=== PATIENT | male | born 1970 | race Hispanic/Latino ===

== ENCOUNTER 2017-05-16 20:35 | Emergency (ER) | payer BC ==
[2017-05-16 21:07] LABS: APPEARANCE,URINE Clear (CLEAR); BILIRUBIN,URINE Negative (NEGATIVE); COLOR,URINE Yellow (YELLOW); GLUCOSE, URINE (UA) TRACE mg/dL (NEGATIVE); KETONES,URINE Trace mg/dL (NEGATIVE); LEUKOCYTE ESTERASE ,URINE Negative (NEGATIVE); NITRATE,URINE Negative (NEGATIVE); OCCULT BLOOD,URINE Negative (NEGATIVE); PH,URINE 5.5 (5.0-8.0); PROTEIN,URINE Negative (NEGATIVE)
[2017-05-16 21:08] LABS: BASOPHILS % (AUTO) 0.6 % (0.0-5.0); EOSINOPHILS % (AUTO) 2.2 % (0.0-8.0); HEMATOCRIT 41.8 % (42-54); LYMPHOCYTES % (AUTO) 31.4 % (21.0-51.0); MEAN CORPUSCULAR HEMOGLOBIN 28.8 pg (27.0-33.0); MEAN CORPUSCULAR HGB CONC 34.6 g/dL (32.0-36.0); MEAN CORPUSCULAR VOLUME 83.4 fL (79-99); NEUTROPHILS % (AUTO) 54.8 % (40.0-77.0); PLATELET COUNT (AUTO) 220 K/uL (130-400); RED BLOOD CELL COUNT(AUTO) 5.01 MIL/uL (4.50-6.20); RED CELL DISTRIBUTION WIDTH 12.9 % (11.0-15.5); WHITE BLOOD COUNT (AUTO) 9.2 K/uL (4.8-10.8)
[2017-05-16 21:13] LABS: BACTERIA,URINE None Seen /HPF (None Seen); RBC,URINE None Seen /HPF (0-1); SQUAMOUS EPITHELIAL CELL,UR 0-2 /LPF (0-2); WBC,URINE None Seen /HPF (0-1)
[2017-05-16 21:38] LABS: CREATININE 0.9 mg/dL (0.5-1.5); POTASSIUM 3.6 mmol/L (3.5-5.1)
[2017-05-16 21:42] LABS: ALBUMIN 3.6 g/dL (3.5-5.0); BILIRUBIN,TOTAL 0.5 mg/dL (0.2-1.0); TOTAL PROTEIN, SERUM 7.5 g/dL (6.0-8.3)
[2017-05-16] MEDS ORDERED: IOPAMIDOL-370 75 ML VIAL IV ONE (21:46)
[2017-05-16] MEDS ORDERED: DiphenhydrAMINE HCL 50 MG/ML VIAL ONE (22:23)
[2017-05-16] MEDS ORDERED: KETOROLAC TROMETHAMINE 30MG/ML ONE (22:24)
== END 2017-05-16 23:11 | disposition home or self-care (01) ==
LOC: EDH 20:35
DX: M70.62 Trochanteric bursitis, left hip (principal); E11.9 Type 2 diabetes mellitus without complications; I10 Essential (primary) hypertension; E78.5 Hyperlipidemia, unspecified; Z90.49 Acquired absence of other specified parts of digestive tract; Z98.890 Other specified postprocedural states
CPT/HCPCS: 36415; 74177; 80053; 81001; 82150; 83690; 85025; 96374; 96375; 99285; J1200; J1885; Q9967

== ENCOUNTER 2018-10-20 19:31 | Emergency (ER) | payer BC, OTHER ==
[2018-10-20] MEDS ORDERED: KETOROLAC TROMETHAMINE 60 MG/2 ML VIAL ONE (20:04)
[2018-10-20] MEDS ORDERED: IBUPROFEN 600 MG TABLET ONE (20:09)
== END 2018-10-20 20:51 | disposition home or self-care (01) ==
LOC: EDH 19:31
DX: S82.831A Other fracture of upper and lower end of right fibula, initial encounter for closed fracture (principal); E11.9 Type 2 diabetes mellitus without complications; E78.5 Hyperlipidemia, unspecified; I10 Essential (primary) hypertension; Z90.49 Acquired absence of other specified parts of digestive tract; W18.49XA Other slipping, tripping and stumbling without falling, initial encounter; Y93.51 Activity, roller skating (inline) and skateboarding; Y92.89 Other specified places as the place of occurrence of the external cause; Y99.8 Other external cause status
CPT/HCPCS: 29515; 73610; 99284; J1885

== ENCOUNTER 2019-01-18 09:27 | Emergency (ER) | payer OTHER ==
[2019-01-18] MEDS ORDERED: ONDANSETRON HCL 4 MG/2 ML VIAL ONE (09:48)
[2019-01-18] MEDS ORDERED: MORPHINE SULFATE 4 MG/1ML SYG ONE (09:48)
[2019-01-18] MEDS ORDERED: CEFAZOLIN SODIUM 1 GM VIAL ONE (11:02)
[2019-01-18] MEDS ORDERED: SODIUM CHLORIDE 0.9% 100 ML IV ONE (11:03)
== END 2019-01-18 12:08 | disposition home or self-care (01) ==
LOC: EDH 09:27
DX: T23.202A Burn of second degree of left hand, unspecified site, initial encounter (principal); T23.201A Burn of second degree of right hand, unspecified site, initial encounter; T22.112A Burn of first degree of left forearm, initial encounter; T22.111A Burn of first degree of right forearm, initial encounter; T31.0 Burns involving less than 10% of body surface; E11.9 Type 2 diabetes mellitus without complications; I10 Essential (primary) hypertension; E78.5 Hyperlipidemia, unspecified; Z90.49 Acquired absence of other specified parts of digestive tract; X18.XXXA Contact with other hot metals, initial encounter; Y93.89 Activity, other specified; Y92.69 Other specified industrial and construction area as the place of occurrence of the external cause; Y99.8 Other external cause status
CPT/HCPCS: 16020; 96365; 96375; 99284; J0690; J2270; J2405

== ENCOUNTER 2025-04-27 10:02 | Emergency (ER) | payer OTHER ==
[~2025-04-27] VITALS: Ht 182.9 cm; Wt 86.6 kg
[2025-04-27 11:17] LABS: IMMATURE GRANULOCYTE ABSOLUTE 0.05 K/uL (0-1); NUCLEATED RED BLOOD CELLS 0.0 % (0.0-0.19); PLATELET COUNT (AUTO) 344 K/uL (130-400); RED BLOOD CELL COUNT(AUTO) 4.75 MIL/uL (4.50-6.20); RED CELL DISTRIBUTION WIDTH 12.1 % (11.0-15.5); WHITE BLOOD COUNT (AUTO) 10.6 K/uL (4.8-10.8)
[2025-04-27 11:28] LABS: CREATININE 0.9 mg/dL (0.5-1.3); GLOMERULAR FILTR. RATE CALC 103.0 mL/min (>90); GLUCOSE,RANDOM 159.0 mg/dL (70-105); SODIUM SERUM 137.0 mmol/L (136-145); UREA NITROGEN, BLOOD 16.0 mg/dL (7-18)
--- NOTE | 2025-04-27 11:55 | EKG ---
[facility] Test Date: 2025-04-27 Test Time: 11:15:59 Pat Name: MARYANN HUDDLESTON Department: [facility] Room: Gender: M Nursing Services Manager: [id number] : 1970 Requested By: NAYA PEDROZA Order Number: [id number] Reading MD: Kwan Mayfield Measurements Intervals [place] Rate: 87 P: 18 CO: 150 QRS: 41 QRSD: 88 T: 66 QT: 337 QTc: 406 Interpretive Statements Sinus rhythm No previous ECG available for comparison Electronically Signed On 04-28-2025 08:45:00 TELEPHONE CLERK by Kwan Mayfield Please click the below link to view image of tracing.
--- NOTE | 2025-04-27 12:04 | HMCIMG ---
STUDY CT HEAD WITHOUT IV CONTRAST HISTORY Severe headache. TECHNIQUE Axial computed tomography images of the head were obtained without intravenous contrast. COMPARISON None. FINDINGS BRAIN No acute intracranial hemorrhage, mass lesion, or CT evidence of an acute territorial infarct is identified. There is no midline shift. Prominent bilateral subdural spaces are present along the high frontoparietal convexities, measuring up to approximately 1.2 cm in maximal thickness, compatible with enlarged subarachnoid spaces; no associated mass effect or acute extra-axial hemorrhage is seen. VENTRICLES The ventricular system is normal in size and configuration, without hydrocephalus. ORBITS The orbits are unremarkable. SINUSES AND MASTOIDS The paranasal sinuses and mastoid air cells are clear. BONES AND SOFT TISSUES No calvarial fracture is identified. The visualized scalp soft tissues are unremarkable. IMPRESSION * No CT evidence of acute intracranial hemorrhage, mass effect, or acute territorial infarct. * Prominent bilateral frontoparietal subdural spaces, measuring up to 1.2 cm, most compatible with enlarged subarachnoid spaces in the absence of mass effect. /[place]
[2025-04-27] MEDS: 0.9%NACL 1000ML 1,000 ML IV STA (12:09)
--- NOTE | 2025-04-27 13:00 | HMCIMG ---
EXAM: CR Chest, 1 View. CLINICAL HISTORY: cp COMPARISON: None provided. FINDINGS: LUNGS: The lungs show no infiltrate or other acute finding. PLEURAL SPACES: No pleural effusion or pneumothorax. MEDIASTINUM: Cardiac size and mediastinal contours within normal limits. BONES: No aggressive appearing osseous lesion seen. IMPRESSION: No acute cardiopulmonary pathology is evident. /[place]
--- NOTE | 2025-04-27 13:25 | ERN ---
ED Note History of Present Illness Stated Complaint: JAW NUMBNESS X 1 WEEK Chief Complaint: Other Problems Time Seen by MD: 10:09 Time Seen by Midlevel: 10:11 Dictation: 54-year-old male with no past medical history coming in with complaints of bilateral jaw numbness for one week states also has a 8/10 headache in right eye pain with some photophobia and phonophobia. Patient denies having any dizziness, unsteady gait, unilateral weakness, numbness or tingling to any extremity. Denies any slurred speech. Any nausea or vomiting. Denies any chest pain or chest discomfort or shortness a breath. Allergies: Coded Allergies: No Known Drug Allergies (Unverified Allergy, Unknown, 04/27/25) Past Medical History Past Medical History: Diabetes-Type II Surgical History: Cholecystectomy Surgical History Other: LEFT HAND SURGERY Review of System Dictation Constitutional: Negative for fever,chills, and weight loss Eyes: Negative for injury, pain,redness, and discharge ENT: Negative for injury,pain or swelling Cardiovascular: Negative for chest pain, palpitations, and edema Respiratory: Negative for shortness of breath, cough, and wheezing, Abdomen/GI: Negative for abdominal pain, nausea, vomiting, diarrhea, and constipation Back: Negative for injury and pain : Negative for injury, bleeding and discharge MS/Extremity: Negative for injury and deformity Skin: Negative for rash, and discoloration Neuro: Complaining of headache no weakness numbness or tingling or seizure Psych: Negative for suicide ideation, homicidal ideation, and hallucinations Review of Systems: was completed Initial Vital Sign VS Vital Signs Date Time Temp Pulse Resp B/P (MAP) Pulse Ox O2 Delivery O2 Flow Rate FiO2 04/27/25 10:04 97.9 99 18 160/98 99 Room Air 04/27/25 11:30 0 21 Physical Exam Dictation General: awake, alert, NAD Head/Face: Normocephalic, atraumatic Eyes: PERRL, EOMI, vision at baseline ENT: oral cavity clear, TMs clear, no signs of infection Neck: Trachea midline, supple, no nuchal rigidity Cardiovascular: RRR, normal S1/S2, No MRGs, no JVD Respiratory: CTAB, no respiratory distress, No rales or wheezes Abdomen: Soft, non-tender, non-distended, normal bowel sounds, no guarding or rebound. Skin: Warm, dry, normal turgor, no rash MS/Extremity: Pulses equal, no cyanosis, neurovascular intact, FROM Neuro: COAx4, GCS 15, strength 5/5, CN 2-12 intact, normal cerebellar exam, normal gait, Psych: Normal behavior, mood, and affect normal Results (Laboratory/Radiology) Laboratory/Radiology Laboratory Tests Test 04/27/25 11:08 White Blood Count 10.6 K/uL (4.8-10.8) Red Blood Count 4.75 MIL/uL (4.50-6.20) Hemoglobin 13.8 g/dL (14.0-18.0) L Hematocrit 39.9 % (42-54) L Mean Corpuscular Volume 84.0 fL (79-99) Mean Corpuscular Hemoglobin 29.1 pg (27.0-33.0) Mean Corpuscular Hemoglobin Concent 34.6 g/dL (32.0-36.0) Red Cell Distribution Width 12.1 % (11.0-15.5) Platelet Count 344 K/uL (130-400) Mean Platelet Volume 9.6 fL (7.5-10.5) Immature Granulocyte % (Auto) 0.5 % (0-1) Neutrophils (%) (Auto) 66.1 % (40.0-77.0) Lymphocytes (%) (Auto) 23.7 % (21.0-51.0) Monocytes (%) (Auto) 8.5 % (3.0-13.0) Eosinophils (%) (Auto) 0.9 % (0.0-8.0) Basophils (%) (Auto) 0.3 % (0.0-5.0) Neutrophils # (Auto) 7.0 K/uL (1.8-7.7) Lymphocytes # (Auto) 2.5 K/uL (1.0-4.8) Monocytes # (Auto) 0.9 K/uL (0.1-1.0) Eosinophils # (Auto) 0.10 K/uL (0.00-0.70) Basophils # (Auto) 0.03 K/uL (0.00-0.20) Absolute Immature Granulocyte (auto 0.05 K/uL (0-1) Nucleated Red Blood Cells 0.0 % (0.0-0.19) Erythrocyte Sedimentation Rate 16 MM/HR (0-20) Sodium Level 137 mmol/L (136-145) Potassium Level 4.0 mmol/L (3.5-5.1) Chloride Level 99 mmol/L (101-111) L Carbon Dioxide Level 30 mmol/L (21-32) Blood Urea Nitrogen 16 mg/dL (7-18) Creatinine 0.9 mg/dL (0.5-1.3) Glomerular Filtration Rate Calc 103 mL/min (>90) Random Glucose 159 mg/dL (70-105) H Total Calcium 9.9 mg/dL (8.5-10.1) Troponin I High Sensitivity 8 ng/L (4-75) C-Reactive Protein, Quantitative 4.00 mg/L (0.5-3.0) H Labs Reviewed?: Yes EKG Comment: EKGs done at 11:15 a.m.. Sinus rhythm rate of 87. No STEMI interpreted by ER MD X-RAY Comment: [facility] [address] [place] [address] [id number] IMAGING REPORT Signed PATIENT: MARYANN HUDDLESTON MR#: [id number] : 1970 SEX: M AGE: 54 LOCATION: [facility] ORDER 48 STATUS: REG ER [facility] REPORT#: [id number] SERVICE 43 REASON: cp ORDERING PHYSICIAN: NAYA PEDROZA CNP PROCEDURE: CXR1VW - CHEST 1VW EXAM: CR Chest, 1 View. CLINICAL HISTORY: COMPARISON: None provided. FINDINGS: LUNGS: The lungs show no infiltrate or other acute finding. PLEURAL SPACES: No pleural effusion or pneumothorax. MEDIASTINUM: Cardiac size and mediastinal contours within normal limits. BONES: No aggressive appearing osseous lesion seen. IMPRESSION: No acute cardiopulmonary pathology is evident. /[place] DICTATED BY: LUISANA FRANCIS Jr., MD DATE: 04/27/251358 ELECTRONICALLY SIGNED BY: LUISANA FRANCIS Jr., MD DATE: 04/27/251358 CT Scan Comment: [address] [place] [id number] IMAGING REPORT Signed PATIENT: MARYANN HUDDLESTON MR#: [id number] : 1970 SEX: M AGE: 54 LOCATION: [facility] ORDER 104 STATUS: REG ER REPORT#: [id number] SERVICE [id number] REASON: severe headache ORDERING PHYSICIAN: NAYA PEDROZA CNP PROCEDURE: HEAD WO - CT HEAD/BRAIN W/O CONTRAST STUDY CT HEAD WITHOUT IV CONTRAST HISTORY Severe headache. TECHNIQUE Axial computed tomography images of the head were obtained without intravenous contrast. COMPARISON None. FINDINGS BRAIN No acute intracranial hemorrhage, mass lesion, or CT evidence of an acute territorial infarct is identified. There is no midline shift. Prominent bilateral subdural spaces are present along the high frontoparietal convexities, measuring up to approximately 1.2 cm in maximal thickness, compatible with enlarged subarachnoid spaces; no associated mass effect or acute extra-axial hemorrhage is seen. VENTRICLES The ventricular system is normal in size and configuration, without hydrocephalus. ORBITS The orbits are unremarkable. SINUSES AND MASTOIDS The paranasal sinuses and mastoid air cells are clear. BONES AND SOFT TISSUES No calvarial fracture is identified. The visualized scalp soft tissues are unremarkable. IMPRESSION * No CT evidence of acute intracranial hemorrhage, mass effect, or acute territorial infarct. * Prominent bilateral frontoparietal subdural spaces, measuring up to 1.2 cm, most compatible with enlarged subarachnoid spaces in the absence of mass effect. /[place] DICTATED BY: LUISANA FRANCIS Jr., MD DATE: 04/27/25 130 ELECTRONICALLY SIGNED BY: LUISANA FRANCIS Jr., MD DATE: 04/27/25 130 ED Course ED Course Orders Procedure Category Date Status Time Cbc With Differential LAB 04/27/25 Complete 10:44 Basic Metabolic Panel LAB 04/27/25 Complete 10:44 Troponin I High LAB 04/27/25 Complete Sensitivity 10:44 12 Lead Ekg Tracing- EKG 04/27/25 Complete Technical 10:44 Chest 1vw RAD 04/27/25 Resulted 10:44 Ct Head/Brain W/O CT 04/27/25 Resulted Contrast 10:44 0.9%Nacl 1000ml (Ns PHA 04/27/25 Complete 1000ml) 10:44 Metoclopramide 10 PHA 04/27/25 Complete Mg/2 Ml Vial (Reglan 1 11:00 Diphenhydramine Hcl PHA 04/27/25 Complete (Benadryl Inj) 11:00 Erythrocyte Sed Rate LAB 04/27/25 Complete 10:53 Crp Quantitative LAB 04/27/25 Complete 10:53 Ketorolac PHA 04/27/25 Complete Tromethamine 15mg/Ml 13:00 Current Medications Medications (Trade) Dose Ordered Sig/Kim Route PRN Reason Start Time Stop Time Status Last Admin Dose Admin Diphenhydramine HCl (BENAdryl INJ) 25 mg ONCE ONCE IV 04/27/25 11:00 04/27/25 11:01 DC 04/27/25 12:09 Ketorolac Tromethamine (toRADol) 15 mg ONCE ONCE IV 04/27/25 13:00 04/27/25 13:01 DC 04/27/25 13:06 Metoclopramide HCl (regLAN 10MG IV) 10 mg ONCE ONCE IVP 04/27/25 11:00 04/27/25 11:01 DC 04/27/25 12:09 Sodium Chloride 1,000 ml @ 1,000 mls/hr Q1H STAT IV 04/27/25 10:44 04/27/25 11:43 DC 04/27/25 12:09 Vital Signs Date Time Temp Pulse Resp B/P (MAP) Pulse Ox O2 Delivery O2 Flow Rate FiO2 04/27/25 11:30 98.4 91 20 150/101 99 Room Air* 0 21 04/27/25 10:04 97.9 99 18 160/98 99 Room Air Medical Decision Making MDM MDM: 65-year-old male with no known past medical history presents with a bilateral jaw numbness for one week subsequently developing headache associated with the right eye pain photophobia and phonophobia. Patient denies any chest pain, shortness a breath, focal weakness, speech changes, facial droop, visual loss, syncope, fever, neck stiffness or recent trauma. Given the constellation of symptoms of broad differential was considered including but not limited to acute coronary syndrome, CVA, intracranial hemorrhage, temporal arteritis, or to remain neuralgia, migraine headache, cluster headache. A cardiac workup was performed due to jaw symptoms, EKGs showed normal sinus rhythm without ischemic changes, cardiac enzymes were negative making ACS unlikely. Neurologic evaluation was conducted. Patient had no focal neuro deficits on exam. CT scan of the head was negative for acute intracranial pathology including hemorrhage or mass effect. Debora concerning for CVA. Laboratory evaluation revealed no leukocytosis, metabolic derangements, ESR and CRP were within normal limits making temporal arteritis unlikely given lack of jaw claudication or visual loss. Patient was treated symptomatically with the IV fluids, Reglan, Benadryl and Toradol with significant improvement in near resolution of symptoms on an reassessment. He remained hemodynamically stable neurologically intact and clinic improved throughout the ED course. Giving normal labs negative imaging results with the patient for emergent ne urological cardiac pathology at this time. We will presentation has been like consistent with a primary headache, migraine type, versus neuralgia or musculoskeletal cervical etiology. Patient reports scheduled follow up with the his primary provider tomorrow and demonstrates good insight and reliability. Shared decision-making was utilized the patient agrees to outpatient management. Differential diagnosis: CVA, complex migraine, dehydration, Rationale: Tests considered and ordered secondary to shared decision making include: Previous outside records reviewed: Old ER visits. Risk of complication and/or morbidity or mortality of patient management: None Medications-Per medication reconciliation Need for hospitalization: Patient does not meet criteria for hospitalization. Need for emergency major/minor surgery: No There are no social concerns with this patient. Prescription drug management Prescriptions will include symptomatic care Patient's prior external medical records from other ER visits were reviewed by me as indicated. Prior testing and results from previous visits were reviewed. Prior tests were taken into account with medical decision making and resource utilization, independent historian/historians were used to obtain complete medical history. I independently interpreted the test that were performed, results were reviewed by me and considered findings on radiology if ordered. Medical management and examination interpretation discussions were had by me with other qualified healthcare professionals as indicated for the patient's care. DX & DISP Disposition: Discharge Departure Impression: Primary Impression: Headache Condition: Stable Additional Instructions: Follow up with your primary care provider as scheduled tomorrow. If you develop any worsening symptoms like slurred speech, unilateral weakness, fevers, nausea or vomiting, unsteady gait return to the hospital. Referrals: JUANITO LOPEZ MD (PCP) Time of Disposition: 13:23 I have reviewed the case, and I agree with, Diagnosis and Plan NAYA PEDROZA CNP Apr 27, 2025 13:25
[2025-04-27 14:07] VITALS: BP 152/85; PULSE 85; RESP 17; TEMP 98; O2SAT 99
== END 2025-04-27 14:06 | disposition home or self-care (01) ==
LOC: EDH 10:02
DX: R51.9 Headache, unspecified (principal); R20.0 Anesthesia of skin; H57.11 Ocular pain, right eye; H53.149 Visual discomfort, unspecified; E11.9 Type 2 diabetes mellitus without complications; Z90.49 Acquired absence of other specified parts of digestive tract; Z98.890 Other specified postprocedural states
CPT/HCPCS: 99285; 96374; 70450; 96375; 71045; 96361; 84484; 80048; 85025; 85651; 86140; 36415; 93005; J1885; J1200; J7030; J2765